=== PATIENT | female | born 2000 | race Caucasian/White ===

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

== ENCOUNTER 2020-06-28 17:05 | Emergency (ER) | payer OTHER ==
--- NOTE | 2020-06-28 17:08 | ED.PDOC ---
History of Present Illness - General Time Seen by Provider: 06/28/20 17:06 Source: patient - History of Present Illness Initial Comments: 20-year-old female who presents with chief complaint of sore throat. Onset yesterday and worsening throughout the day today. Now rates as constant 10/10 severity pain to the back of her throat and both tonsils, no radiation, worsens with any attempted p.o. intake and swallowing. She states that she was seen at the respiratory clinic this morning but no tests were done. She was prescribed an antibiotic that begins with a C but is unsure of the name. She did take 1 dose of this medication but reports no improvement. She reports possible fevers and chills last night but none today. She has not taken any [id number] medications. She works at [employer]. Unknown if any recent sick contacts. Also reports mild 4/10 severity frontal headache. Denies any cough, shortness of breath, chest pain, abdominal pain, nausea, vomiting, diarrhea, urinary symptoms. Allergies/Adverse Reactions: Allergies Naproxen [From Aleve] Adverse Reaction (Verified 04/01/19 13:26) Other Causes nosebleeds Home Medications: Ambulatory Orders NK 06/28/20 Review of Systems - Review of Systems Review of Systems: 06/28/20 17:20 As per the HPI All other Systems: Reviewed and Negative Past Medical History (General) - Patient Medical History Hx Seizures: No Hx Stroke: No Hx Dementia: No Hx Asthma: No Hx of COPD: No Hx Cardiac Disorders: Yes - pvc's Hx Congestive Heart Failure: No Hx Pacemaker: No Hx Hypertension: No Hx Thyroid Disease: No Hx Diabetes: No Hx Gastroesophageal Reflux: Yes - with Hx Renal Disease: No Hx of HIV: No Hx MRSA: No - Vaccination History Hx Tetanus, Diphtheria Vaccination: Yes Hx Influenza Vaccination: Yes - 2019 Hx Pneumococcal Vaccination: No - Social History Hx Tobacco Use: No - Quit 2018 Hx Alcohol Use: No Hx Substance Use: No Hx Substance Use Treatment: No Hx Depression: No - Female History Hx Last Menstrual Period: 11/05/18 Patient : Yes Expected Date of Delivery:: 01/17/19 Family Medical History - Family History Mother Family History: No Known Living Status: Still Living Hx Family Asthma: Yes Physical Exam - Physical Exam General Appearance: Alert, Comfortable, No apparent distress Eye Exam: bilateral normal Ears, Nose, Throat: hearing grossly normal, pharyngeal erythema - Diffuse erythema to the posterior oropharynx and bilateral tonsils with minimal equal bilateral tonsil swelling and small scattered white exudates Neck: full range of motion, supple, lymphadenopathy (R), lymphadenopathy (L) Respiratory: lungs clear, normal breath sounds, no respiratory distress, no accessory muscle use Cardiovascular/Chest: normal peripheral pulses, no edema, no gallop, no JVD, no murmur, tachycardia Peripheral Pulses: radial,right: 2+, radial,left: 2+ Gastrointestinal/Abdominal: non tender, soft, no organomegaly Back Exam: normal inspection Extremity: normal range of motion, non-tender, normal inspection, no pedal edema, normal capillary refill 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 Consider bacterial causes such as strep versus viral etiologies. Consider COVID-19. Suspect most likely tension headache. No red flag symptoms apparent. -Obtain rapid strep test, respiratory viral panel, urinalysis, test. Place peripheral IV and will give 1 L normal saline bolus along with Motrin 800 mg p.o. and topical Chloraseptic sore throat spray. 06/28/20 19:01 -Patient reports feeling much better, remains stable in the ED. Tachycardia is resolved with IV fluids. Her headache is resolved. Her pain is much improved. -Labs reveal negative strep and mono screens. Urine test is negative. UA with small RBC/WBC's, doubtful of UTI. Respiratory panel negative for all pathogens including COVID-19. -Discussed all findings with patient. Although her strep test is negative, I still have high suspicion for streptococcal or other bacterial tonsillopharyngitis. Thus will treat with Bicillin 1,200,000 units IM in the ED. Will also treat with Decadron 8 mg p.o as there is good evidence this improves the course of illness. Advised to discontinue her oral antibiotics. Work note given. Discharged home in good condition, return warnings discussed. Ye Yanez MD Billing #[id number] 06/28/20 17:15 STREP A SCREEN CULTURE Stat 06/28/20 17:30 RESPIRATORY PANEL 2 Stat 06/28/20 18:25 URINE CULTURE W/COLONY COUNT Stat Laboratory Results - last 24 hr 06/28/20 06/28/20 06/28/20 17:15 18:20 18:20 Urine Color Urine Appearance Urine pH Ur Specific [place] Urine Protein Urine Glucose (UA) Urine Ketones Urine Blood Urine Nitrite Urine Bilirubin Urine Urobilinogen Ur Leukocyte Esterase Urine RBC Urine WBC Ur Epithelial Cells Amorphous Sediment Urine Bacteria Urine HCG, Qual Negative Monoscreen Negative Group A Strep Rapid Negative 06/28/20 18:25 Urine Color Yellow Urine Appearance Cloudy Urine pH 7.0 Ur Specific [place] 1.020 Urine Protein Negative Urine Glucose (UA) Negative Urine Ketones Negative Urine Blood Negative Urine Nitrite Negative Urine Bilirubin Negative Urine Urobilinogen 1.0 Ur Leukocyte Esterase Small H Urine RBC 3-5 H Urine WBC 3-5 H Ur Epithelial Cells >50 Amorphous Sediment 1+ Urine Bacteria 1+ Urine HCG, Qual Monoscreen Group A Strep Rapid Departure - Departure Clinical Impression: Tonsillopharyngitis Time of Disposition: 18:57 Disposition: Discharge to Home or Self Care Condition: Fair Departure Forms: ED Discharge - Work Release Instructions: Sore Throat, Adult (DC) Diet: resume usual diet Activity: increase activity as tolerated Referrals: Az Elliott MD [Primary Care Provider] - 1-2 Weeks Home Medications: Ambulatory Orders NK 06/28/20 Additional Instructions: Remain well-hydrated and gradually advance your diet and activity level as tolerated. You may continue to take [id number] medications as needed for sore throat such as Chloraseptic sore throat spray, ibuprofen 600 mg every 6 hours as needed, Tylenol 650 mg every 6 hours as needed, warm salt water gargles as needed, etc. Return to the ED if you develop any concerning symptoms such as hoarse or muffled voice, trouble swallowing or managing saliva, shortness of breath, chest pain, or other concerning symptoms. Follow-up with your primary care physician is recommended in the next 1 to 2 weeks for repeat evaluation or sooner as needed.
[2020-06-28] MEDS ORDERED: IBUPROFEN 200 MG TAB PO ONE (17:17)
[2020-06-28] MEDS ORDERED: SODIUM CHLORIDE 0.9% 1000ML 1,000 ML IVS ONE (17:17)
[2020-06-28] MEDS ORDERED: PHENOL THROAT SPRAY 180 ML BTTL MT ONE (17:18)
[2020-06-28] MEDS ORDERED: PENICILLIN BENZATHINE 1.2 MU 1.2 MU/2 ML SYG IM ONE (18:53)
[2020-06-28] MEDS ORDERED: DEXAMETHASONE 4 MG TAB PO ONE (18:53)
[2020-06-28 19:28] VITALS: BP 114/84; TEMP 97.8; O2SAT 97
== END 2020-06-28 19:12 | disposition home or self-care (01) ==
LOC: ER 17:05
DX: J03.90 Acute tonsillitis, unspecified (principal); R51 Headache; Z88.8 Allergy status to other drugs, medicaments and biological substances; Z87.891 Personal history of nicotine dependence; Z20.828 Contact with and (suspected) exposure to other viral communicable diseases
CPT/HCPCS: 36415; 81001; 81025; 86403; 87070; 87086; 87635; 87880; J0561; J7030; J8540

== ENCOUNTER 2020-11-01 17:46 | Emergency (ER) | payer OTHER ==
--- NOTE | 2020-11-01 19:17 | ED.PDOC ---
History of Present Illness - General Time Seen by Provider: 11/01/20 18:45 Additional Information: HX OF ANXIETY ATTACKS - History of Present Illness Initial Comments: SYMPTOMS SIMILAR TO HER ANXIETY ATTACKS, FEELING DIZZY, "AN UNREAL FEELING" PERIORAL NUMBNESS. Timing/Duration: other - RECURRENT, LAST ABOUT 5 MINUTES. Associated Symptoms: anxiety Allergies/Adverse Reactions: Allergies Naproxen [From Aleve] Adverse Reaction (Verified 04/01/19 13:26) Other Causes nosebleeds Home Medications: Ambulatory Orders NK 06/28/20 Review of Systems - Review of Systems Constitutional: States: no symptoms reported EENTM: States: no symptoms reported Respiratory: States: no symptoms reported Cardiology: States: no symptoms reported Gastrointestinal/Abdominal: States: no symptoms reported Genitourinary: States: no symptoms reported Musculoskeletal: States: no symptoms reported Skin: States: no symptoms reported Neurological: States: no symptoms reported Endocrine: States: no symptoms reported Past Medical History (General) - Patient Medical History Hx Seizures: No Hx Stroke: No Hx Dementia: No Hx Asthma: No Hx of COPD: No Hx Cardiac Disorders: No Hx Congestive Heart Failure: No Hx Pacemaker: No Hx Hypertension: No Hx Thyroid Disease: No Hx Diabetes: No Hx Gastroesophageal Reflux: No Hx Renal Disease: No Hx Cancer: No Hx of HIV: No Hx Hepatitis C: No Hx MRSA: No Surgical History: no surgical history - Vaccination History Hx Tetanus, Diphtheria Vaccination: No Hx Influenza Vaccination: No Hx Pneumococcal Vaccination: No Immunizations Up to Date: No - Social History Hx Tobacco Use: Yes Hx Chewing Tobacco Use: No Hx Alcohol Use: No Hx Substance Use: No Hx Substance Use Treatment: No Hx Depression: No Feels Threatened In Home Enviroment: No Feels Threatened In a Relationship: No Hx Physical Abuse: No Hx Emotional Abuse: No Hx Suspected Abuse: No - Female History Patient is a Female of Child Bearing Age (10 -59 yrs old): Yes Hx Last Menstrual Period: 11/05/18 Patient : No Expected Date of Delivery:: 01/17/19 Family Medical History - Family History Mother Family History: No Known Living Status: Still Living Hx Family Asthma: Yes Physical Exam - Physical Exam General Appearance: Alert, Well Developed, Well Groomed, Well Hydrated, Well Nourished Eyes, Ears, Nose, Throat Exam: PERRL/EOMI, normal ENT inspection Neck: non-tender, full range of motion Respiratory: chest non-tender, lungs clear, normal breath sounds, no respiratory distress Cardiovascular/Chest: normal peripheral pulses, regular rate, rhythm, no edema, no gallop, no JVD, no murmur Gastrointestinal/Abdominal: normal bowel sounds, non tender, soft Neurological: alert, normal mood/affect Appearance: appropriate appearance, appropriate insight, neat Behavior/Eye Contact/Speech: cooperative, good eye contact, normal speech Skin Exam: normal color, warm/dry Departure - Departure Clinical Impression: Anxiety attack Time of Disposition: 19:37 Disposition: Discharge to Home or Self Care Condition: Good Instructions: Anxiety, Adult (DC) Referrals: Az Elliott MD [Primary Care Provider] - 1-2 Weeks Home Medications: Ambulatory Orders NK 06/28/20
[2020-11-01 19:43] VITALS: BP 113/68; TEMP 97.7; O2SAT 100
== END 2020-11-01 19:43 | disposition home or self-care (01) ==
LOC: ER 17:46
DX: F41.9 Anxiety disorder, unspecified (principal); Z87.891 Personal history of nicotine dependence; Z88.6 Allergy status to analgesic agent